=== PATIENT | male | born 1985 | race Caucasian/White ===

== ENCOUNTER 2016-10-09 12:13 | Emergency (ER) | payer SELFPAY ==
[2016-10-09 12:28] VITALS: RESP 16; O2SAT 96
[2016-10-09] MEDS ORDERED: PROPARACAINE 0.5% 15 ML OPHT DROP OP ONE (14:12)
[2016-10-09] MEDS ORDERED: PROPARACAINE 0.5% 15 ML OPHT DROP ONE (14:12)
[2016-10-09 15:15] VITALS: TEMP 98.1
--- NOTE | 2016-10-09 15:15 | EDPHY ---
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 Patient remembers the entire accident , no loss of consciousness. He denies nausea or vomiting, no blurred vision, no difficulty concentrating. He denies neck pain. Patient did have bleeding out of bilateral nares which subsided prior to arrival to the emergency department. He denies blurred vision. REVIEW OF SYSTEMS: A comprehensive 10 point review of systems is otherwise negative aside from elements mentioned in the history of present illness. Source: Patient Exam Limitations: No limitations - Personal History Current Tetanus Diphtheria and Acellular Pertussis (TDAP): Yes - Medical/Surgical History Hx Asthma: No Other PMH: heart surgery as a child - Social History Smoking Status: Never smoked - Physical Exam Exam: General Appearance: Alert, no distress, talking appropriately, comfortable. Head: Atraumatic without scalp tenderness or obvious injury Eyes: Pupils equal, round, reactive to light, EOMI, conjunctival hemorrhage to right medial conjunctiva, swelling to right upper and lower eyelid, superficial abrasion to right upper lid, superficial horizontal laceration to lower lid inferior to tarsus Ears: Clear bilaterally, no perforation, no hemotympanum Nose: swelling to nasal bridge, dried blood in bilateral nare, no septal hematoma Neck: The cervical spine is non-tender and there is no pain or neurologic deficits with active range of motion. Cardiovascular: Heart is regular rate and rhythm without murmur. Good capillary refill all extremities. Chest: Atraumatic, equal bilateral breath sounds. Chest is non-tender to palpation. Extremities: All extremities are non-tender to palpation without obvious deformity. There is full active range of motion of the joints. Neurological: The patient has normal DTRs and non-focal Cranial nerves, motor, sensory, and cerebellar exam Skin: 5mm laceration to right lower lid. Constitutional: Initial Vital Signs Temperature (C) 36.7 C 10/09/16 12:25 Heart Rate 90 10/09/16 12:25 Respiratory Rate 16 10/09/16 12:25 Blood Pressure 123/76 H 10/09/16 12:25 O2 Sat (%) 96 10/09/16 12:25 O2 Delivery Mode Room Air Allergies/Adverse Reactions: codeine [Codeine] Allergy (Verified 10/09/16 12:25) Home Medications: Medication Instructions Recorded NK [No Known Home Meds] 10/09/16 Medical Decision Making Procedures: Procedure: Laceration repair. Verbal consent was obtained from the patient. The 5 mm laceration on the right lower lid was anesthetized using 1 percent lidocaine with epinephrine. The wound was carefully irrigated by the emergency department lidar technician. Next, the wound was prepped and draped in sterile fashion and explored to its base with a gloved finger. There were no deep structures involved. No vascular injury was identified. No foreign bodies were identified. The wound was repaired with 7.0 Prolene 1 simple interrupted suture. The wound repair was complex. Multiple wound margins required revising. The procedure was performed by myself. Tetanus and antibiotic status were addressed. ED Course/Re-evaluation: 31-year-old male with facial injury after colliding with another rugby player. Patient has no evidence orbital injury with no pain with range of motion of eyes , extraocular motion intact. Patient has swelling to his nasal bridge. He reports he has broken his nose 9 times. I discussed getting a CT scan of his maxillofacial bones and the patient would like to wait and get this if needed when swelling decreases after he sees the ENT. I think this is appropriate. This patient presents after a minor head injury with no, amnesia or LOC. Neurologic exam normal. Patient has mild headache. No indication for neuro imaging. [facility] precautions given. Differential Diagnosis: The differential diagnosis for the patient's head injury included but was not limited to concussion, skull fracture, intra-parenchymal contusion, subarachnoid , subdural and epidural hematoma. Departure - Departure Disposition: Home, Routine, Self-Care Clinical Impression: Facial trauma Qualifiers: Encounter type: initial encounter Qualified Code(s): S09.93XA - Unspecified injury of face, initial encounter Nasal injury Qualifiers: Encounter type: initial encounter Qualified Code(s): S09.92XA - Unspecified injury of nose, initial encounter Eyelid laceration Qualifiers: Encounter type: initial encounter Laterality: right Qualified Code(s): S01.111A - Laceration without foreign body of right eyelid and periocular area, initial encounter Condition: Good Instructions: Nasal Fracture (ED), Head Injury (ED), Facial Laceration (ED) Additional Instructions: Return in 5 days for suture removal, return sooner for any signs of infection, fevers. Return to the emergency department immediately for any forceful vomiting, confusion, unsteady gait, seizure-like activity, new symptoms or concerns. Follow-up with the head injury specialist for any concussion symptoms lasting past Tuesday. Follow up with the ENT once your swelling subsides or if you have any nasal deformity or difficulty breathing out of your nostrils. Take 600 mg of ibuprofen every 8 hours with food and/or 650 mg of Tylenol every 8 hours for headache. Referrals: Aliyah Mcdonald MD [Medical Doctor] - As per Instructions (Concussion specialist) Felicita Reardon MD [Medical Doctor] - As per Instructions (ENT on-call)
[2016-10-09 15:26] VITALS: BP 131/82; PULSE 65
== END 2016-10-09 15:25 | disposition home or self-care (01) ==
PROC: 0HQ1XZZ Repair Face Skin, External Approach (ICD-10-PCS; principal; 2016-10-09)
DX: S01.111A Laceration without foreign body of right eyelid and periocular area, initial encounter (principal); S09.92XA Unspecified injury of nose, initial encounter; S09.93XA Unspecified injury of face, initial encounter; W51.XXXA Accidental striking against or bumped into by another person, initial encounter; Y99.8 Other external cause status; Y93.63 Activity, rugby